=== PATIENT | male | born 1995 | race Caucasian/White ===

== ENCOUNTER 2016-08-16 13:18 | Outpatient (CLI) | payer OTHER ==
[2016-08-16] MEDS ORDERED: BUFFERED LIDOCAINE 10 ML SYRINGE IU ONE (14:10)
[2016-08-16] MEDS ORDERED: GADOPENTETATE DIMEGLUMINE 5 ML VIAL IVP ONE (14:10)
[2016-08-16] MEDS ORDERED: IOTHALAMATE MEGLUMINE 50 ML VIAL IVP ONE (14:10)
[2016-08-16] MEDS ORDERED: LIDOCAINE-MPF 1% 5 ML VIAL TD ONE (14:10)
== END 2016-08-16 13:19 | disposition home or self-care (01) ==
DX: S43.431A Superior glenoid labrum lesion of right shoulder, initial encounter (principal)
CPT/HCPCS: 23350; 73222; 77002; Q9961

== ENCOUNTER 2016-09-11 12:40 | Outpatient (CLI) | payer OTHER ==
--- NOTE | 2016-09-12 10:59 | MRI Report ---
EXAM: RIGHT ANKLE/HINDFOOT MRI WITHOUT CONTRAST EXAM DATE: 09/11/2016 01:40 PM. CLINICAL HISTORY: RIGHT ANKLE PAIN AND INSTABILITY. COMPARISON: None. TECHNIQUE: Multiplanar, multisequence T1-weighted and fluid-sensitive sequences of the ankle/hindfoot without contrast. Other: None. FINDINGS: Bones and articular surfaces: No significant ankle joint effusion. Small focal osteochondral lesion a t the medial dome of the talus. There is concavity within the subchondral bone plate. Overlying carti wilton thinning and underlying subchondral marrow edema. No displaced or unstable osteochondral fragmen t identified. No additional osteochondral lesions. No additional significant marrow signal abnormalit ies. No fracture identified. No destructive bone lesions. Musculotendinous structures: The Achilles tendon and plantar fascia appear intact. Visualized anterio r, posterior and posterolateral ankle tendons appear intact without evidence of significant tendinosi s or tenosynovitis. Trace fluid adjacent to the tibialis posterior tendon. No muscle atrophy or fatty replacement. Ligaments: The anterior and posterior talofibular, calcaneofibular and deltoid ligaments appear intac t. IMPRESSION: 1. Small osteochondral lesion at the medial dome of the talus with prominent focal associated subchon dral marrow edema. [facility]CULOSKE[facility] SECTION Referring Provider Line: [phone] SITE ID: [id number]
== END 2016-09-11 12:41 | disposition home or self-care (01) ==
LOC: DI 12:40
PROVIDERS: ATTEND Orthopaedic Surgery
DX: M93.871 Other specified osteochondropathies, right ankle and foot (principal)

== ENCOUNTER 2016-09-27 13:07 | Outpatient (CLI) | payer OTHER ==
--- NOTE | 2016-09-27 15:36 | MRI Report ---
EXAM: LEFT ANKLE/HINDFOOT MRI WITHOUT CONTRAST EXAM DATE: 09/27/2016 02:25 PM. CLINICAL HISTORY: Chronic left ankle pain. COMPARISON: None. TECHNIQUE: Multiplanar, multisequence T1-weighted and fluid-sensitive sequences of the ankle/hindfoot without contrast. Other: None. FINDINGS: Bones and articular cartilage: There is an approximately 10 x 7 mm area of slight cortical irregulari ty, mild to moderate cartilage thinning and irregularity, and subcortical hypointense signal likely r epresenting sclerosis at the medial aspect of the talar dome. No definite discrete detached osteochon dral fragment is seen. No acute fracture. No marrow edema. Ligaments: The anterior and posterior tibiofibular, anterior and posterior talofibular, and calcaneof ibular ligaments are intact. The deep and superficial deltoid and spring ligaments are intact. Anterior Tendons: The tibialis anterior, extensor hallucis longus, and extensor digitorum longus tend ons are unremarkable. Medial Tendons: The tibialis posterior, flexor digitorum longus, and flexor hallucis longus tendons a re unremarkable. Lateral Tendons: The peroneus brevis and longus are unremarkable. Achilles Tendon: The Achilles tendon is unremarkable. Musculature: No edema or fatty atrophy. Other: No effusions. The contents of the sinus tarsi and tarsal tunnel are unremarkable. No plantar f asciitis. The subcutaneous tissues are unremarkable. IMPRESSION: 1. 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 [facility]CULOSKELET[facility]IOLOG[facility] SECTION Referring Provider Line: [phone] SITE ID: [id number]
== END 2016-09-27 13:08 | disposition home or self-care (01) ==
LOC: DI 13:07
PROVIDERS: ATTEND Orthopaedic Surgery
DX: M89.9 Disorder of bone, unspecified (principal)